=== PATIENT | female | born 2000 | race American Indian/Alaskan Native ===

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

== ENCOUNTER 2022-07-12 21:34 | Outpatient (CLI) | payer OTHER ==
[~2022-07-12 21:34] MED LIST: AMOXICILLIN500 M1 PO; PRENATAL TABLE1 EAC1 PO
[2022-07-12] MEDS ORDERED: PRENATAL TABLE1 EAC3 PO (22:12)
[2022-07-12] MEDS ORDERED: CHILDREN'S ASPI81 MG PO (22:12)
== END 2022-07-13 12:00 | disposition home or self-care (01) ==
LOC: OBS/DEL 21:34
PROVIDERS: ATTEND Obstetrics & Gynecology
DX: O9A.212 Injury, poisoning and certain other consequences of external causes complicating pregnancy, second trimester (principal); T14.90XA Injury, unspecified, initial encounter; W18.39XA Other fall on same level, initial encounter; Y93.9 Activity, unspecified; Y92.9 Unspecified place or not applicable; Y99.9 Unspecified external cause status; Z3A.27 27 weeks gestation of pregnancy

== ENCOUNTER 2022-09-30 08:43 | Inpatient (IN) | payer OTHER ==
[~2022-09-30] VITALS: Ht 160 cm; Wt 101.2 kg
[~2022-09-30 08:43] MED LIST changes: +CHILDREN'S ASPI81 MG PO; +PRENATAL TABLE1 EAC3 PO
== END 2022-10-02 12:54 | disposition home or self-care (01) | DRG 807 ==
LOC: LDR 08:43 → OB/GYN 20:29
PROVIDERS: ADMIT Obstetrics & Gynecology; ATTEND Obstetrics & Gynecology
PROC: 10E0XZZ Delivery of Products of Conception, External Approach (ICD-10-PCS; principal; 2022-09-30)
PROC: 4A1HXCZ Monitoring of Products of Conception, Cardiac Rate, External Approach (ICD-10-PCS; 2022-09-30)
DX: O99.824 Streptococcus B carrier state complicating childbirth (principal); Z37.0 Single live birth; Z3A.38 38 weeks gestation of pregnancy; Z20.822 Contact with and (suspected) exposure to COVID-19